=== PATIENT | male | born 1985 | race African-American/Black ===

== ENCOUNTER 2023-10-31 16:25 | Emergency (ER) | payer OTHER ==
[~2023-10-31] VITALS: Ht 182.9 cm; Wt 83.9 kg
[2023-10-31 17:30] VITALS: TEMP 98.7
[2023-10-31 18:31] LABS: BASOPHILS % 0.2 % (0.0-1.0); EOSINOPHILS # (AUTO) 0.1 (0.0-0.4); HEMATOCRIT 42.2 % (38.2-49.6); HEMOGLOBIN 12.8 g/dL (14.0-18.0); LYMPHOCYTES # (AUTO) 1.9 (1.0-3.2); MEAN CORPUSCULAR HEMOGLOBIN 25.4 pg (28-32); MEAN CORPUSCULAR HGB CONC 30.3 g/dL (31-35); MEAN CORPUSCULAR VOLUME 83.9 fL (81-99); MONOCYTES # (AUTO) 0.5 (0.2-0.8); MONOCYTES % 11.7 % (4.4-11.3); NEUTROPHILS # (AUTO) 1.8 (2.1-6.9); NEUTROPHILS % 41.9 % (38.7-80.0); PLATELET COUNT 187 x10e3/uL (140-360); RED BLOOD COUNT 5.03 x10e6/uL (4.3-5.7); WHITE BLOOD COUNT 4.37 x10e3/uL (4.8-10.8)
[2023-10-31 18:48] VITALS: PULSE 46; RESP 17
[2023-10-31 18:55] LABS: ALBUMIN 4.1 g/dL (3.5-5.0); ALBUMIN/GLOBULIN RATIO 1.4 (0.8-2.0); ANION GAP 13.1 mmol/L (8-16); BILIRUBIN,TOTAL 0.7 mg/dL (0.2-1.2); CALCIUM 9.2 mg/dL (8.4-10.2); CREATININE, SERUM 1.1 mg/dL (0.72-1.25); POTASSIUM 4.1 mmol/L (3.5-5.1); TOTAL PROTEIN 7.1 g/dL (6.5-8.1)
[2023-10-31 19:00] LABS: TROPONIN I 0.012 ng/mL (0-0.300)
[2023-10-31] MEDS: ASPIRIN 325 MG TAB PO STA (19:09)
[2023-10-31 19:10] VITALS: BP 149/90; PULSE 45; RESP 18; TEMP 98.2; O2SAT 100
== END 2023-10-31 19:22 | disposition other institution (70) ==
LOC: ER 18:03
DX: R07.9 Chest pain, unspecified (principal); I21.3 ST elevation (STEMI) myocardial infarction of unspecified site; R06.02 Shortness of breath; R94.31 Abnormal electrocardiogram [ECG] [EKG]
CPT/HCPCS: 36415; 71045; 80053; 82550; 83690; 83880; 84484; 85025; 93005; 99284